=== PATIENT | female | born 1970 | race Caucasian/White ===

== ENCOUNTER 2018-06-11 21:01 | Emergency (ER) | payer MEDICAID, SELFPAY ==
[2018-06-11 21:04] VITALS: BP 141/89; PULSE 76; RESP 16; TEMP 36.4; O2SAT 98; BMI 40.8
[2018-06-11 21:17] VITALS: BP 159/97; PULSE 77; RESP 15; O2SAT 99
[2018-06-11 21:36] LABS: Basophil# 0.05 X10^3/uL; Basophil% 0.5 % (0-1); Eosinophil# 0.37 X10^3/uL; Eosinophils% 3.9 % (0-5); Hematocrit 39.5 % (37-47); Hemoglobin 13.1 g/dl (12.0-15.0); Lymphocyte % 25.1 % (19-41); Mean Corp Hgb Conc 33.2 g/gl (32-36); Mean Corpuscular Hgb 29.2 pg (27.0-32.0); Mean Platelet Vol. 9.3 fl (6.2-12.0); Monocyte# 0.72 X10^3/uL; Monocyte% 7.5 % (0-10); Neutrophil % 62.9 % (47-70); Platelet Count 353 K/mm3 (150-450); RBC Distribution Width CV 12.4 % (11.6-14.6); Red Blood Count 4.49 M/mm3 (4.2-5.4); White Blood Count 9.6 K/mm3 (4.4-11.0)
[2018-06-11 21:37] LABS: POSITIVE COUNT NO; POSITIVE DIFFERENTIAL NO; POSITIVE MORPHOLOGY NO
[2018-06-11 21:44] VITALS: BP 159/97; PULSE 74; RESP 20; O2SAT 95
[2018-06-11 21:49] LABS: Anion Gap 8 (5-15); BUN 10 mg/dL (7-18); BUN/Creat Ratio 11.2 RATIO (10-20); Calcium,Total 8.9 mg/dL (8.5-10.1); Chloride 104 mmol/L (98-107); Creatinine, Serum 0.89 mg/dL (0.55-1.02); EST Glomerular Filtration Rate 73 mL/min (>60); Est Glom Filt Rate - Afr Amer 88 mL/min (>60); Estimated Creatinine Clearance 68.93 ml/min; Glucose 90 mg/dL (74-106); Potassium 3.8 mmol/L (3.5-5.1); Sodium Level 140 mmol/L (136-145)
[2018-06-11 22:39] VITALS: BP 128/77; PULSE 71; RESP 15; O2SAT 97
[2018-06-11] MEDS: Mag Hydrox/Al Hydrox/Simeth 30 ML UDC PO (22:44)
[2018-06-11] MEDS: Metoclopramide 10 MG/2 ML Vial 5 MG IV (22:44)
[2018-06-11 23:11] VITALS: BP 116/62; PULSE 75; RESP 18; O2SAT 97
--- NOTE | 2018-06-11 23:26 | ED.VIS.GEN ---
History of Present Illness Chief Complaint: Chest Pain Informant: Patient Onset: Hours - 6 Context: Gradual Onset Timing: Continuous Quality: sharp, pressure Location: left chest w/o radiation Current Severity: Mild Maximum Severity: Moderate Worsened by: lying supine. nonexertional, nonpleuritic. Relieved by: sitting up. Associated Symptoms: nausea, global mild-mod headache Narrative: Patient is a medical delivery driver student, today they were learning how to take blood pressures and they took her blood pressure and it was high in the 160s. She said that she had a headache and chest discomfort during this, so EMS was called to bring her to the ER. She has no history of heart or lung disease, but does take losartan for her blood pressure. She has been compliant with it. She states when I took her blood pressure, it was initially in the 140s, and every time they took it, the pressure got higher. She states she has had this chest discomfort before. She gets it off and on for multiple months. Today it has been there consistently for 6 or so hours prior to my evaluation. Denies any dyspnea, cough, fever, leg pain or swelling. She has abdominal discomfort on the right side that is been present for months and she has an appointment with a roll forming supervisor in 2 weeks for evaluation, she states she was told that her herniorrhaphy mesh is attached to her appendix. She states the symptoms are no different today. - Past Medical History (1) HTN (hypertension) Status: Chronic (2) Fibromyalgia Status: Chronic (3) GERD (gastroesophageal reflux disease) Status: Chronic (4) Keen esophagus Status: Chronic Past Medical History - Allergies and Home Meds Allergies/Adverse Reactions: Allergies iodine Allergy (Verified 06/11/18 21:14) Itching latex Allergy (Verified 06/11/18 21:14) Itching Primary Care Physician: Sheryl Camargo MD [Primary Care Provider] - Smoking Status: Former smoker Review of Systems All systems negative except as indicated General: Denies: Chills, Fever, Sweats Eyes: Denies: Blurred Vision - bilaterally, Diplopia Cardiovascular: Reports: Chest pain. Denies: Palpitations, Heart racing Respiratory: Denies: Dyspnea, Cough Gastrointestinal: Reports: Abdominal pain, Nausea. Denies: Vomiting, Diarrhea, Melena, Hematochezia Genitourinary: Denies: Dysuria, Hematuria Musculoskeletal: Denies: Neck pain, Back pain, Swelling, Extremity Pain Skin: Denies: Rash, Wounds Neurological: Reports: Headache. Denies: Weakness, Numbness Physical Exam Vital Signs/Narrative: Vital Signs Temp Pulse Resp BP Pulse Ox 06/11/18 23:11 75 18 116/62 97 06/11/18 22:39 71 15 128/77 H 97 06/11/18 21:44 74 20 H 159/97 H 95 06/11/18 21:17 77 15 159/97 H 99 06/11/18 21:04 97.6 F L 76 16 141/89 H 98 Inital Vital Signs reviewed: Yes General: Well nourished, Well developed, Obese Head: Normocephalic, Atraumatic Eyes: Perrl, EOMI ENT: Moist mucous membranes, No rhinorrhea Neck: Supple, Nontender, No JVD Cardiovascular: Regular rate, Regular rhythm, No murmurs Respiratory: No distress, CTA bilaterally, Chest nontender Abdomen: Soft, Nontender, Nondistended, Normal bowel sounds Back: Nontender, Normal Inspection Extremities: Nontender, No edema Skin: Normal color, No rash Neurological: Alert, Oriented x3, Cranial nerves II-XII grossly intact, Normal Strength, Normal Sensation Psychological: Normal affect Diagnostic/Tx/Re-eval Impressions Chest X-Ray 06/11/18 21:30 IMPRESSION: No acute cardiopulmonary disease. Electronically Signed: Donato Carranza DO at 21:41 EDT Tel [phone], Service support , 06/11/18 21:30 Chest 1 View (Portable) [RAD] Stat Laboratory Results 06/11/18 06/11/18 Range/Units 21:20 21:20 WBC 9.6 (4.4-11.0) K/mm3 RBC 4.49 (4.2-5.4) M/mm3 Hgb 13.1 (12.0-15.0) g/dl Hct 39.5 (37-47) % MCV 88.0 (81-99) fL MCH 29.2 (27.0-32.0) pg MCHC 33.2 (32-36) g/gl RDW 12.4 (11.6-14.6) % RDW Differential 39.0 (35.1-43.9) fl Plt Count 353 (150-450) K/mm3 MPV 9.3 (6.2-12.0) fl Immature Gran % (Auto) 0.100 (0.0-0.9) % Neut % (Auto) 62.9 (47-70) % Lymph % (Auto) 25.1 (19-41) % Stevens % (Auto) 7.5 (0-10) % Eos % (Auto) 3.9 (0-5) % Baso % (Auto) 0.5 (0-1) % Absolute Neuts (auto) 6.0 (2.0-7.7) X10^3/uL Absolute Lymphs (auto) 2.40 (0.83-4.51) X10^3/ul Total Counted Not Reportable Sodium 140 (136-145) mmol/L Potassium 3.8 (3.5-5.1) mmol/L Chloride 104 (98-107) mmol/L Carbon Dioxide 28.0 (21.0-32.0) mmol/L Anion Gap 8 (5-15) BUN 10 (7-18) mg/dL Creatinine 0.89 (0.55-1.02) mg/dL Estim Creat Clear Calc 68.93 ml/min Est GFR (MDRD) Af Amer 88 (>60) mL/min Est GFR (MDRD) Non-Af 73 (>60) mL/min BUN/Creatinine Ratio 11.2 (10-20) RATIO Glucose 90 (74-106) mg/dL Calcium 8.9 (8.5-10.1) mg/dL Troponin I < 0.015 (<0.045) ng/mL - Rhythm Strip Rhythm Strip: Sinus Rhythm Rate: 70 Ectopy: None - EKG Initial EKG Interpretation: Sinus Rhythm, No Acute Injury Pattern, - - normal EKG. Prior: Unchanged - unchanged c/w normal EMS EKG. - Medical Decision Making Workup including chest x-ray, EKG, troponin is negative/normal. Her chest discomfort resolved after a GI cocktail, her headache resolved after Reglan 5 mg IV. Was going to give her hydralazine, however her pressure normalized without treatment of her blood pressure directly. She had several blood pressures that were in the 120s and one that was 119/70s. She is reassured, I feel it is safe for her to be discharged home for what is likely noncardiac chest discomfort, encouraged to follow-up for blood pressure and other reevaluation. She is on omeprazole and encouraged to continue taking it. ED Disposition - Plan for ED Patient: Disposition: Home or Assisted Living Chief Complaint: Chest Pain Diagnosis: Chest pain, unspecified, Cephalgia, Transient hypertension Instructions: ED Chest Pain NonCardiac Referrals: Sheryl Camargo MD [Primary Care Provider] - 3-5 Days
[2018-06-11 23:58] VITALS: BP 125/70; PULSE 87; RESP 18; O2SAT 97
== END 2018-06-11 23:59 | disposition home or self-care (01) ==
PROVIDERS: Emergency Provider Emergency Medicine; Family Provider Family Medicine; PCP Family Medicine
DX: R07.9 Chest pain, unspecified (principal); R51 Headache; I10 Essential (primary) hypertension; K21.9 Gastro-esophageal reflux disease without esophagitis; M79.7 Fibromyalgia; K22.70 Barrett's esophagus without dysplasia; Z87.891 Personal history of nicotine dependence; Z79.899 Other long term (current) drug therapy
CPT/HCPCS: 71045; 80048; 84484; 85025; 93005; 96374; 99285; A4216